=== PATIENT | female | born 1935 | race Caucasian/White ===

== ENCOUNTER 2019-09-02 15:25 | Inpatient (IN) | payer MEDICARE, BC ==
[2019-09-02] MEDS ORDERED: Fentanyl 100 MCG/2 ML VIAL ONE (16:37)
[2019-09-02 17:08] LABS: Bacteria/HPF 2+ HPF (None Seen); Bilirubin Negative (Negative); Blood, Urine 1+ (Negative); Clarity Turbid (Clear); Glucose, Urine (Dipstick) Normal (Negative); Leukocyte Negative Leu/uL (Negative); Nitrite Negative (Negative); Protein, Urine (Dipstick) 100 mg/dL (Neg-Trace); RBC/HPF 0-3 HPF (0-3); Squamous Epithelial 0-3 HPF (0-3); Urobilinogen 6 mg/dL (Less than 2); WBC/HPF 0-3 HPF (0-3)
--- NOTE | 2019-09-02 17:17 | CT ---
CT BRAIN WITHOUT CONTRAST: HISTORY: Loss of consciousness, altered mental status and laceration to the left face FINDINGS: No evidence of acute infarct, hemorrhage, midline shift or abnormal extra-axial fluid collections is seen. The ventricular size is appropriate and the basilar cisterns are patent. The bony calvarium is intact. There is a scalp contusion in the left frontoparietal region and soft tissue swelling the left perior bital region. A small air-fluid level is seen in the left maxillary sinus. Clinical correlation for facial bone fracture is recommended. IMPRESSION: No CT evidence of acute intracranial process.
--- NOTE | 2019-09-02 17:21 | CT ---
CT CERVICAL SPINE WITH CORONAL AND SAGITTAL REFORMATIONS AND NO IV CONTRAST: HISTORY: Patient found unconscious with laceration to the left face, neck pain FINDINGS: Multilevel degenerative changes are present. No acute fracture, subluxation or facet malalignment is identified. Anterior wedging of the superior endplate of C5 vertebral body has a chronic appearance. No prevertebral soft tissue swelling is apparent. There is scarring in the lung apices. IMPRESSION: No CT evidence for acute fracture or traumatic subluxation.
[2019-09-02 17:27] LABS: ALT (SGPT) 27 U/L (8-55); AST (SGOT) 45 U/L (5-34); Albumin 3.3 g/dL (3.4-4.8); Alkaline Phosphatase 59 U/L (40-110); Anion Gap 20 mmol/L (10-20); BUN (Urea Nitrogen) 48 mg/dL (9.8-20.1); Bilirubin, Total 0.7 mg/dL (0.2-1.2); CK (CPK) 1089 U/L (29-168); Calc. Creatinine Clearance 0 mL/min (70-130); Calcium 8.8 mg/dL (7.8-10.44); Carbon Dioxide 18 mmol/L (23-31); Chloride 106 mmol/L (98-107); Estimated GFR-MDRD 56; Globulin 3.2 g/dL (2.4-3.5); Glucose 156 mg/dL (83-110); Lipase 4 U/L (8-78); Potassium 3.8 mmol/L (3.5-5.1); Protein, Total 6.5 g/dL (6.0-8.3); Sodium 140 mmol/L (136-145)
[2019-09-02] MEDS ORDERED: cefTRIAXone\\ROCEPHIN 1 GM VIAL ONE (17:49)
--- NOTE | 2019-09-02 17:52 | RAD ---
THREE VIEWS LEFT SHOULDER: 09/02/19 COMPARISON: None. HISTORY: Shoulder pain. FINDINGS: Three views of the left shoulder shows no evidence of acute fracture or dislocation. No degenerative changes are seen. No soft tissue swelling is seen. IMPRESSION: No evidence of acute osseous abnormality. POS: EAA
[2019-09-02 17:54] LABS: CKMB 23.8 ng/mL (0-6.6)
--- NOTE | 2019-09-02 17:57 | RAD ---
PORTABLE CHEST ONE VIEW: 09/02/19 at 4:39 p.m. HISTORY: Fall. Chest pain. FINDINGS: Comparison made with exam of 12/13/13. Changes of median sternotomy again seen. The heart size is normal. The aorta is tortuous. The lungs a re well expanded without lobar consolidation, pneumothoraces, or pleural effusions. Bony structures a re grossly intact. IMPRESSION: No radiographic evidence of acute cardiopulmonary process. POS: H
[2019-09-02 18:01] LABS: #Lymphocytes 0.4 thou/uL (1.20-3.40); #Monocytes 1.7 thou/uL (0.11-0.59); #Neutrophils 10.6 thou/uL (1.40-6.50); %Basophils 0.1 % (0.0-1.0); %Eosinophils 0.1 % (0.0-10.0); %Lymphocytes 3.3 % (21.0-51.0); %Monocytes 13.3 % (0.0-10.0); %Neutrophils 83.3 % (42.0-75.0); Hemoglobin 15.2 g/dL (12.0-16.0); Mean Corpuscular HGB CONC 32.2 g/dL (32.0-36.0); Mean Corpuscular Hemoglobin 29.5 pg (27.0-31.0); Mean Corpuscular Volume 91.7 fL (78.0-98.0); Mean Platelet Volume 7.3 fL (7.4-10.4); Platelet Count 319 thou/uL (130-400); RBC Distribution Width 12.8 % (11.5-14.5); Red Blood Cell (RBC) Count 5.14 mill/uL (4.20-5.40); White Blood Cell (WBC) Count 12.8 thou/uL (4.8-10.8)
[2019-09-02] MEDS ORDERED: Sodium Chloride 0.9% 1,000 ML IV SCH (19:55)
[2019-09-02] MEDS ORDERED: Dextrose 50% Abboject 50 ML SYRINGE SLOW IVP PRN (20:04)
[2019-09-02] MEDS ORDERED: Dextrose 5% in Water 1,000 ML IV PRN (20:04)
[2019-09-02 20:12] VITALS: BMI 19.2
[2019-09-02] MEDS ORDERED: HumaLOG 300 UNITS/3 ML VIAL SC PRN (20:18)
[2019-09-02] MEDS: Sodium Chloride 0.9% 1,000 ML IV SCH (20:49)
[2019-09-02] MEDS ORDERED: Famotidine 20 MG TAB PO SCH (21:00)
--- NOTE | 2019-09-02 21:15 | RAD ---
AP PELVIS: 09/02/19 HISTORY: Fall, hip pain. FINDINGS/IMPRESSION: There are degenerative changes in the hip joints. No acute fracture or dislocation identified. POS: MICHAEL
--- NOTE | 2019-09-02 21:40 | CT ---
CT Facial Bones WO Con HISTORY: Left-sided facial laceration concerning for fracture COMPARISON: None. FINDINGS: No facial bone fracture is seen. No temporomandibular dislocation is identified. There is a tiny amou nt of fluid in the left maxillary sinus. Mucosal disease is noted in the posterior ethmoid air cells. There is mild left periorbital soft tissue swelling.
--- NOTE | 2019-09-02 22:33 | ULT ---
EXAM: Bilateral lower extremity venous Doppler US HISTORY: bilateral lower extremity edema and pain FINDINGS: Grayscale, color-flow, Doppler evaluation, spectral analysis of the bilateral lower extremities venou s structures is performed with 2-D imaging. The bilateral common femoral, superficial femoral, popliteal, posterior tibial, proximal greater saphenous and profunda femoral veins are imaged. There is normal luminal compressibility, flow, and augmentation in the visualized deep venous structu res of the bilateral lower extremities. IMPRESSION: No evidence of a deep vein thrombosis in either lower extremity.
[2019-09-02] MEDS: Acetaminophen 325 MG TAB PO PRN (22:38)
[2019-09-02 23:03] LABS: Troponin I 0.056 ng/mL (< 0.028)
--- NOTE | 2019-09-03 01:07 | HP ---
PRIMARY CARE PHYSICIAN: Dr. Usman Botello. CHIEF COMPLAINT: "Found down at home." HISTORY OF PRESENT ILLNESS: The patient is a pleasant 83-year-old female with past medical history significant for diabetes, type 2, which is diet controlled. She presents to the ER today after her sister went to check on her after she had not heard from her for couple of days and found her lying on the floor covered in feces and urine. The patient states she is unaware of how long she was down on the floor, but the last time anyone saw her was the [employer] delivery driver assistant, who was there on Saturday delivering her food, which was three days ago. She states that it was a fall caused by her dogs who were rough with her walker and it caused her to fall down. She denies any pain at this time. She was wearing a Life Alert bracelet, but she fell on top of it and was unable to press it to call for help. In the ER today, they brea lab work and performed a brain CT and cervical spine CT, chest x-ray, shoulder x-ray, and EKG. Multiple wounds had dog hair in them and while nursing was cleaning the patient they discovered multiple maggots in her vaginal and rectal area which they removed. APS was notified at this time. PAST MEDICAL HISTORY: Significant for diabetes, type 2. PAST SURGICAL HISTORY: CABG in 2015. ALLERGIES: NO KNOWN DRUG ALLERGIES. MEDICATIONS: Unable to obtain at this time- patient does not remember. SOCIAL HISTORY: The patient lives alone in her house. She uses a walker to get around. States she no longer drives, but her son will arrange a otr driver for her if she has to go to her doctor's appointments. She denies any alcohol, cigarette, or drug use. FAMILY HISTORY: None that patient can remember. REVIEW OF SYSTEMS: All other review of systems are negative unless noted in the HPI. PHYSICAL EXAMINATION: VITAL SIGNS: Blood pressure 108/70, pulse 90, respiratory rate 16, pain 0, O2 saturation 96% on room air, and temperature 97.6 orally. GENERAL: The patient is cachectic appearing. No acute distress. HEENT: Hematoma to the right forehead. Normocephalic. Pressure necrosis to the left cheek secondary to lying on her Life Alert for three days. Eyes; PERRLA. Extraocular muscles are intact. Edema to the left eyelid, however, it does not obstruct her vision. ENT; dry mucosa. NECK: Trachea midline. No JVD. No lymphadenopathy. RESPIRATORY: Clear to auscultation bilaterally. No wheezing, no rales, no rhonchi. CARDIAC/HEART: Regular rate and rhythm. No gallops, no rubs, no murmurs. GI/ABDOMEN: Nontender. Normal bowel sounds. No masses, no guarding, no rigidity. EXTREMITIES: Normal range of motion. Skin tear noted to the left elbow. NEURO: The patient is alert, oriented to person, place, and time. Speech is normal. No focal deficits. SKIN: Multiple skin tears to her abdomen area and arms. She does have a hematoma to her forehead and the pressure ulcer to her left cheek. PSYCH: Flat affect noted. LABORATORY DATA: White blood cells 12.8, hemoglobin 15.2, and hematocrit 47.2. Sodium 140, potassium 3.8, BUN 48, creatinine 0.96, GFR 56, glucose 156, and calcium 8.8. CK 1089, CK-MB 23.8, troponin 0.076, and albumin 3.3. Urine; positive for protein and ketones, 1+ blood, and 2+ bacteria. EKG; sinus rhythm, rate 93. IMAGING DATA: CT of her brain, no evidence for acute intracranial process. Cervical spine CT showed no CT evidence for acute fracture or traumatic subluxation. IMPRESSION AND PLAN: 1. Rhabdomyolysis. We will begin to gently hydrate with fluids overnight and recheck lab levels in the morning. 2. Fall. The patient was found down after three days of lying on the floor. Case Management consult has been placed for possible placement versus rehab versus home health. APS case initiated in the ER. 3. Facial pressure ulcer. Wound Care team has been consulted. 4. Abrasions. 5. Closed head injury. CT scan negative for anything acute. Continue to monitor mentation. 6. Elevated troponin. We will continue to trend troponins throughout the evening. Feel this may be due to her lying on the ground for three days, 7. General weakness. PT and OT ordered to assess and work with patient. Dietitian consult placed. 8. Muscle wasting. 9. Urinary tract infection. Continue IV antibiotics. Urine culture sent. 10. Gastrointestinal prophylaxis ordered. Day team to decide regarding VTE prophylaxis once imaging results. No SCDs due to lower extremity pain and swelling- awaiting venous ultrasound. 11. The patient wishes to be a DNR. 12. The patient's surrogate decision maker will be her son, Evan, phone #[phone]. Job ID: [id number] MTDD
[2019-09-03] MEDS: Sodium Chloride 0.9% 1,000 ML IV SCH ×3 (04:30→21:10)
[2019-09-03 05:09] LABS: Chloride 110 mmol/L (98-107); Potassium 4.7 mmol/L (3.5-5.1); Sodium 138 mmol/L (136-145)
[2019-09-03 05:11] LABS: Calcium 8.1 mg/dL (7.8-10.44); Glucose 126 mg/dL (83-110)
[2019-09-03 05:13] LABS: Carbon Dioxide 15 mmol/L (23-31)
[2019-09-03 05:15] LABS: Calc. Creatinine Clearance 36 mL/min (70-130); Estimated GFR-MDRD 52
[2019-09-03 05:16] LABS: BUN (Urea Nitrogen) 50 mg/dL (9.8-20.1)
[2019-09-03 05:17] LABS: CK (CPK) 1877 U/L (29-168)
[2019-09-03 05:39] LABS: Anion Gap 18 mmol/L (10-20)
[2019-09-03 07:51] LABS: Mean Corpuscular HGB CONC 32.9 g/dL (32.0-36.0); Mean Corpuscular Hemoglobin 29.7 pg (27.0-31.0); Mean Corpuscular Volume 90.1 fL (78.0-98.0); Platelet Count 279 thou/uL (130-400); Red Blood Cell (RBC) Count 4.73 mill/uL (4.20-5.40); White Blood Cell (WBC) Count 9.8 thou/uL (4.8-10.8)
[2019-09-03 09:50] LABS: Band 4 % (5-11); Lymphocytes 10 % (21-51); MDiff Complete? YES; Monocytes 14 % (0-10); Neutrophil 72 % (42-75); Platelet Morphology Comment Appears Adequate; Polychromasia SLIGHT = 2-3 cells (100X) (0-2/hpf); Vacuoles SLIGHT
[2019-09-03] MEDS: Acetaminophen 325 MG TAB PO PRN (12:22)
--- NOTE | 2019-09-03 13:14 | PRG ---
DATE OF SERVICE: 09/03/2019 SUBJECTIVE: The patient is lying in her bed. She looks very weak and not able to participate in any significant PT because of her generalized weakness and status post fall and multiple abrasions of her skin from the fall, but she is able to communicate with me. OBJECTIVE: VITAL SIGNS: Blood pressure is 115/54, pulse is 84, temperature is 97.5, respiratory rate is 18, and O2 saturation is 95% on room air. HEENT: Her pupils are responding to light properly. Sclerae are nonicteric. Oral mucosa is dry. NECK: Supple. SKIN: She has multiple excoriations on the left part of her body, hips, knees included, also left upper chest abrasion. PSYCH: She follows my commands. She understands me. LUNGS: Clear. HEART: S1 and S2, somewhat irregular. No S3. No S4. ABDOMEN: Soft, mildly tender to deeper palpation in the left side of the abdomen. No guarding. No masses. EXTREMITIES: 1+ peripheral edema, similar bilateral on both lower extremities around both ankles. NEUROLOGIC: She follows my commands. She tries to move her extremities, but she is very weak. She is not able to do that. LABORATORY DATA: Labs showed a normal CBC. Chemistry showed sodium of 130, potassium 4.7, chloride 110, CO2 of 15, BUN 50, creatinine 1.01, and glucose 126. The rest of chemistry is within normal limits. Creatine kinase 1877, troponin I 0.06 and 0.056. Microbiology, no report so far. IMPRESSION: 1. Rhabdomyolysis from the fall, on IV fluids. Her creatine kinase is higher today than it was yesterday. We will continue the same regimen with 125 mL/h of normal saline. 2. Status post fall with closed head injury and negative CT scan for any acute problems. Her mentation seems to be doing okay. 3. Generalized weakness. 4. Possible urinary tract infection, on IV antibiotic. Culture of urine still pending. 5. Muscle wasting. PLAN: To continue her IV fluids. Continue PT, OT. Continue wound care. She will need rehabilitation transfer. She will continue Tylenol p.r.n. as needed for possible pain. We will continue her ceftriaxone for possible UTI until we have urine culture. Her diabetes will be managed with sliding scale and we will hold her oral antidiabetic medications. I am holding her carvedilol and lisinopril since her blood pressure is running within normal range. Job ID: [id number]
[2019-09-03] MEDS: cefTRIAXone\\ROCEPHIN 1 GM in Sodium Chloride 0.9% 100 ML IVPB SCH (17:25)
[2019-09-03] MEDS: Famotidine 20 MG TAB PO SCH (21:07)
[2019-09-03] MEDS ORDERED: Bacitracin 1 PK TOP SCH (22:30)
[2019-09-04] MEDS: Acetaminophen 325 MG TAB PO PRN ×2 (02:22→15:23)
[2019-09-04 04:26] LABS: Anion Gap 7 mmol/L (10-20); BUN (Urea Nitrogen) 33 mg/dL (9.8-20.1); CK (CPK) 336 U/L (29-168); Calc. Creatinine Clearance 51 mL/min (70-130); Calcium 7.6 mg/dL (7.8-10.44); Carbon Dioxide 23 mmol/L (23-31); Chloride 111 mmol/L (98-107); Estimated GFR-MDRD 79; Glucose 136 mg/dL (83-110); Potassium 3.6 mmol/L (3.5-5.1); Sodium 137 mmol/L (136-145)
[2019-09-04] MEDS: Sodium Chloride 0.9% 1,000 ML IV SCH ×3 (05:39→20:44)
--- NOTE | 2019-09-04 12:19 | PQF ---
Date: 09-04-19 ATTN: DR. BRANDON TRUJILLO Please exercise your independent, professional judgment in responding to the clarification form. Clinical indicators are provided on the bottom of this form for your review Please check appropriate box(s): [ ] Protein Calorie Malnutrition: [ ] Mild [ ] Moderate [ ] Severe [ ] Other Malnutrition (please specify) __ [ ] Other diagnosis [ x ] Unable to determine In addition, please specify: Present on Admission (POA): [ ] Yes [ ] No [ x ] Unable to determine CLINICAL INDICATORS - SIGNS / SYMPTOMS / LABS / RESULTS AND LOCATION IN MR: BMI: 19.4 H&P 09-02-19: PATIENT IS CACHECTIC APPEARING, MUSCLE WASTING, Patient has visible signs of muscle wasting but unable to obtain weight history. TANK ERECTOR CONSULT 09-03-19: MST Score: 2 (14-23 lb weight loss), WCT pending for unstageable pressure ulcer to L cheek; multiple abrasions and skin tears also noted s/p fall at home; [id number] muscle wasting to temporalis and trapezius, moderate fat loss to ribs RISK FACTORS / RESULTS AND LOCATION IN MR: H&P: 09-02-19: HX DM 2, FOUND HER LYING ON THE FLOOR COVERED INFECTED AND URINE, CLOSED HEAD INJURY, GENERALIZED WEAKNESS, MUSCLE WASTING, UTI TREATMENT / RESULTS AND LOCATION IN MR: TANK ERECTOR CONSULT 09-03-19: 1. Recommend a Consistent Carb (1800 juan jose)/Heart Healthy diet 2. Recommend Glucerna Shakes BID in between meals Moderate Malnutrition (in acute illness) Energy Intake: <75% of estimated energy requirement for > 7 days Weight Loss: 1-2%/1 week; 5%/ 1 month; 7.5%/3 months Other: mild body fat loss; mild muscle mass loss; mild fluid accumulation; Severe Malnutrition (in acute illness) Energy Intake: < 50% of estimated energy requirement for > 5 days Weight Loss: >1-2%/1 week; >5%/1 month; >7.5%/3 months Other: moderate body fat loss; moderate muscle mass loss; moderate- severe fluid accumulation; measurably reduced enterprise architect manager strength Moderate Malnutrition (in chronic illness) Energy Intake: <75% of estimated energy requirement for >1 month Weight Loss: 5%/1 month; 7.5%/3 months; 10%/6 months; 20%/1 year Other: mild body fat loss; mild muscle mass loss; mild fluid accumulation Severe Malnutrition (in chronic illness) Energy Intake: <75% of estimated energy requirement for >1 month Weight Loss: >5%/1 month; >7.5%/3 months; >10%/6 months; >20%/1 year Other: severe body fat loss; severe muscle mass loss; severe fluid accumulation ; measurably reduced enterprise architect manager strength (This form is maintained as a part of the permanent medical record) 2015 [email or web address] All Rights Reserved [email or web address]
[2019-09-04] MEDS: Bacitracin 1 PK TOP SCH ×2 (14:47→20:45)
[2019-09-04] MEDS: cefTRIAXone\\ROCEPHIN 1 GM in Sodium Chloride 0.9% 100 ML IVPB SCH (18:00)
--- NOTE | 2019-09-04 20:04 | PDOC.HOSPP ---
- Subjective Encounter Date: 09/04/19 Encounter Time: 09:00 Subjective: 83yo F w/ Parkinson's disease presents after a mechanical fall. This morning, feeling better. Complains of inability to move left arm that is new, however, likey acute on chronic due to fall. Not able to care for self but refuses long goods drier placement, agrees to rehab. - Objective Vital Signs & Weight: Vital Signs (12 hours) Temp Pulse Resp BP Pulse Ox 09/04/19 16:55 98.1 F 63 16 108/52 L 99 09/04/19 11:55 98.6 F 72 13 118/59 L 98 Weight Admit Weight 119 lb 2 oz Weight 120 lb I&O: 09/03/19 09/04/19 09/05/19 06:59 06:59 06:59 Intake Total 1600 3895 Output Total 650 750 300 Balance 950 3145 -300 Result Diagrams: 09/03/19 07:32 09/04/19 03:38 Additional Labs: Accuchecks 09/04/19 09/04/19 09/04/19 17:02 10:55 06:28 POC Glucose 127 H 136 H 107 09/03/19 21:14 POC Glucose 99 Hospitalist ROS - Review of Systems Constitutional: denies: fever, chills, sweats, weakness, malaise, other Respiratory: denies: cough, dry, shortness of breath, hemoptysis, SOB with excertion, pleuritic pain, sputum, wheezing, other Cardiovascular: denies: chest pain, palpitations, orthopnea, paroxysmal noc. dyspnea, edema, light headedness, other Gastrointestinal: denies: nausea, vomiting, abdominal pain, diarrhea, constipation, melena, hematochezia, other Musculoskeletal: reports: arm pain Neurological: reports: weakness, incoordination. denies: change in speech - Medication Medications: Active Medications Generic Name Dose Route Start Last Admin Trade Name Freq PRN Reason Stop Dose Admin Acetaminophen 650 mg 09/02/19 20:18 09/04/19 15:23 Tylenol PO 650 mg Q4H PRN Administration Headache/Fever/Mild Pain (1-3) Bacitracin 0 pk 09/04/19 09:00 09/04/19 14:47 Bacitracin TOP 1 pk Q12HR MIGUEL Administration Famotidine 20 mg 09/03/19 21:00 09/03/19 21:07 Pepcid PO 20 mg 2100 MIGUEL Administration Sodium Chloride 1,000 mls @ 125 mls/hr 09/02/19 20:30 09/04/19 13:23 Normal Saline 0.9% IV 1,000 mls .Q8H MIGUEL Administration Ceftriaxone Sodium 1 gm/ 100 mls @ 200 mls/hr 09/03/19 18:00 09/04/19 18:00 Sodium Chloride IVPB 100 mls Q24HR MIGUEL Administration Insulin Human Lispro 0 units 09/02/19 20:18 09/03/19 12:24 Humalog SC 2 unit .MILD SLIDING SCALE PRN Administration Mild Correctional Scale - Exam General Appearance: NAD, awake alert Heart: RRR, no murmur, no gallops, no rubs, normal peripheral pulses Respiratory: CTAB, no wheezes, no rales, no ronchi, normal chest expansion, no tachypnea, normal percussion Skin - other findings: multiple skin lacerations and pressure ulcers Musculoskeletal: generalized weakness Hosp A/P - Plan #parkinson's disease #mechanical fall -fell after dogs pushed her walker, unable to get up, found in feces -unable to care for self; refuses long goods drier placement, rehab started -Per PT, improved strength -Trop not trended but no complaints c/w cardiac pain and CKMB/CK < 0.05 Full code pending rehab placement; CM onboard
[2019-09-04] MEDS: Famotidine 20 MG TAB PO SCH (20:44)
[2019-09-04] MEDS: Aspirin 81 mg Enteric Coated Tablet PO SCH (20:45)
[2019-09-04] MEDS ORDERED: Simethicone Chewable 80 MG TAB PO PRN (20:51)
[2019-09-04] MEDS ORDERED: Mag-Al 1200 mg/1200 mg/30 ML UDCUP PO PRN (20:51)
[2019-09-05] MEDS: Acetaminophen 325 MG TAB PO PRN ×2 (00:36→09:46)
[2019-09-05] MEDS: Vancomycin 1 GM in Premix Bag 1 BAG IVPB SCH (00:37)
[2019-09-05 05:21] LABS: Anion Gap 8 mmol/L (10-20); BUN (Urea Nitrogen) 21 mg/dL (9.8-20.1); Calc. Creatinine Clearance 58 mL/min (70-130); Calcium 7.5 mg/dL (7.8-10.44); Carbon Dioxide 23 mmol/L (23-31); Chloride 110 mmol/L (98-107); Estimated GFR-MDRD 87; Glucose 119 mg/dL (83-110); Magnesium 1.9 mg/dL (1.6-2.6); Potassium 3.6 mmol/L (3.5-5.1); Sodium 137 mmol/L (136-145)
[2019-09-05 05:28] LABS: Phosphorus 1.6 mg/dL (2.3-4.7)
[2019-09-05] MEDS ORDERED: Potassium Phosphate 30 MMOL in Sodium Chloride 0.9% 500 ML IVPB SCH (06:00)
[2019-09-05] MEDS: Bacitracin 1 PK TOP SCH ×2 (09:18→20:52)
[2019-09-05] MEDS ORDERED: Morphine 2 MG/ML SYRINGE SLOW IVP SCH (11:00)
--- NOTE | 2019-09-05 14:31 | MRI ---
Exam: Brain MRI without contrast HISTORY: Left sided weakness. Fall. Evaluate for CVA. COMPARISON: None FINDINGS: Calvarial marrow signal intensity: Appropriate T1 signal Gradient echo sequence: No hemorrhage Brain parenchyma: No mass, mass effect or midline shift. Brain volume, age-appropriate. Cortical goyal-white matter differentiation: Preserved Restricted diffusion: Central arterial flow voids are maintained. Absent restricted diffusion White matter signal intensities:Scattered T2, FLAIR white matter hyperintensities due to chronic smal l vessel ischemic changes Sinuses: Partial opacification of the mastoid air cells. Mild mucosal thickening of the ethmoid air c ells. IMPRESSION: 1. Absent restricted diffusion. No acute infarct.
[2019-09-05] MEDS: Acetaminophen/Codeine 30-300mg Tablet PO PRN ×2 (14:43→20:52)
--- NOTE | 2019-09-05 15:37 | PDOC.HOSPP ---
- Subjective Encounter Date: 09/05/19 Encounter Time: 09:30 Subjective: Pt seen for followup re: LUE numbness. c/o LUE numbness. No cough or fevers. - Objective Vital Signs & Weight: Vital Signs (12 hours) Temp Pulse Resp BP Pulse Ox 09/05/19 12:00 97.5 F L 63 14 101/51 L 96 09/05/19 08:00 98 F 66 18 115/56 L 97 09/05/19 07:45 97 09/05/19 03:54 98.0 F 70 20 110/56 L 95 Weight Admit Weight 119 lb 2 oz Weight 123 lb I&O: 09/04/19 09/05/19 09/06/19 06:59 06:59 06:59 Intake Total 3895 1200 Output Total 750 900 Balance 3145 300 Result Diagrams: 09/03/19 07:32 09/05/19 04:31 Additional Labs: Accuchecks 09/05/19 09/05/19 09/04/19 11:08 06:04 20:03 POC Glucose 133 H 107 121 H 09/04/19 17:02 POC Glucose 127 H Labs and MARs reviewed by me EKG Reviewed by me: Yes (Tele: NSR) Hospitalist ROS - Review of Systems Cardiovascular: denies: chest pain, palpitations, orthopnea, paroxysmal noc. dyspnea, edema, light headedness Gastrointestinal: denies: nausea, vomiting, abdominal pain, diarrhea, constipation, melena, hematochezia Neurological: reports: numbness - Medication Medications: Active Medications Generic Name Dose Route Start Last Admin Trade Name Freq PRN Reason Stop Dose Admin Acetaminophen 650 mg 09/02/19 20:18 09/05/19 09:46 Tylenol PO 650 mg Q4H PRN Administration Headache/Fever/Mild Pain (1-3) Acetaminophen/Codeine Phosphate 1 tab 09/05/19 10:51 09/05/19 14:43 Tylenol #3 PO 1 tab Q6H PRN Administration Moderate Pain (4-6) Aspirin 81 mg 09/04/19 21:00 09/04/19 20:45 Ecotrin PO 81 mg HS MIUGEL Administration Bacitracin 0 pk 09/04/19 09:00 09/05/19 09:18 Bacitracin TOP 1 pk Q12HR MIGUEL Administration Famotidine 20 mg 09/03/19 21:00 09/04/19 20:44 Pepcid PO 20 mg 2100 MIGUEL Administration Sodium Chloride 1,000 mls @ 75 mls/hr 09/04/19 20:10 09/04/19 20:44 Normal Saline 0.9% IV 1,000 mls .[id number] MIGUEL Administration Vancomycin HCl 1 gm/ Device 200 mls @ 200 mls/hr 09/05/19 01:00 09/05/19 00: 37 IVPB 200 mls 0100 MIGUEL Administration Insulin Human Lispro 0 units 09/02/19 20:18 09/03/19 12:24 Humalog SC 2 unit .MILD SLIDING SCALE PRN Administration Mild Correctional Scale Simethicone 80 mg 09/04/19 20:51 09/04/19 21:15 Mylicon Chewable PO 80 mg PCHS PRN Administration Gas Pain - Exam General Appearance: awake alert Eye: anicteric sclera ENT: normocephalic atraumatic, no oropharyngeal lesions, moist mucosa Neck: supple, symmetric, no thyromegaly Heart: RRR, no rubs Respiratory: CTAB Gastrointestinal: soft, non-tender Extremities - other findings: LUE edema Neurological: normal sensation to touch Psychiatric: normal affect, normal behavior Hosp A/P - Plan - Assessment/Plan: #numbness LUE -Check MRI brain due to numbness LUE #parkinson's disease #mechanical fall -s/p fall, unkempt -Awaiting Inpt Rehab
[2019-09-05] MEDS ORDERED: HumaLOG 300 UNITS/3 ML VIAL SC PRN (20:37)
[2019-09-05] MEDS: Sodium Chloride 0.9% 1,000 ML IV SCH (20:51)
[2019-09-05] MEDS: Aspirin 81 mg Enteric Coated Tablet PO SCH (20:52)
[2019-09-05] MEDS: Famotidine 20 MG TAB PO SCH (20:53)
[2019-09-06] MEDS: Vancomycin 1 GM in Premix Bag 1 BAG IVPB SCH (00:53)
[2019-09-06] MEDS: Bacitracin 1 PK TOP SCH (09:34)
[2019-09-06] MEDS: Sodium Chloride 0.9% 1,000 ML IV SCH (09:36)
[2019-09-06] MEDS: Acetaminophen/Codeine 30-300mg Tablet PO PRN (11:23)
--- NOTE | 2019-09-06 13:57 | PDOC.HOSPP ---
- Subjective Encounter Date: 09/06/19 Encounter Time: 08:30 Subjective: Pt seen for followup re: rhabdomyolysis. Feels better today. - Objective Vital Signs & Weight: Vital Signs (12 hours) Temp Pulse Resp BP Pulse Ox 09/06/19 11:14 98.2 F 70 18 120/59 L 93 L 09/06/19 07:53 95 09/06/19 07:24 97.8 F 66 17 115/57 L 95 09/06/19 04:53 98.1 F 66 16 109/57 L 95 Weight Admit Weight 119 lb 2 oz Weight 127 lb 8 oz I&O: 09/05/19 09/06/19 09/07/19 06:59 06:59 06:59 Intake Total 1200 1140 Output Total 900 550 Balance 300 590 Result Diagrams: 09/03/19 07:32 09/05/19 04:31 Additional Labs: Accuchecks 09/06/19 09/06/19 09/05/19 10:51 05:55 23:45 POC Glucose 166 H 99 135 H 09/05/19 09/05/19 20:23 16:37 POC Glucose 210 H 181 H Labs and MARs reviewed by me EKG Reviewed by me: Yes (Tele: NSR) Hospitalist ROS - Review of Systems Cardiovascular: denies: chest pain, palpitations, orthopnea, paroxysmal noc. dyspnea, edema, light headedness Gastrointestinal: denies: nausea, vomiting, abdominal pain, diarrhea, constipation, melena, hematochezia - Medication Medications: Active Medications Generic Name Dose Route Start Last Admin Trade Name Freq PRN Reason Stop Dose Admin Acetaminophen 650 mg 09/02/19 20:18 09/05/19 09:46 Tylenol PO 650 mg Q4H PRN Administration Headache/Fever/Mild Pain (1-3) Acetaminophen/Codeine Phosphate 1 tab 09/05/19 10:51 09/06/19 11:23 Tylenol #3 PO 1 tab Q6H PRN Administration Moderate Pain (4-6) Aspirin 81 mg 09/04/19 21:00 09/05/19 20:52 Ecotrin PO 81 mg HS MIGUEL Administration Bacitracin 0 pk 09/04/19 09:00 09/06/19 09:34 Bacitracin TOP 1 pk Q12HR MIGUEL Administration Famotidine 20 mg 09/03/19 21:00 09/05/19 20:53 Pepcid PO 20 mg 2100 MIGUEL Administration Sodium Chloride 1,000 mls @ 75 mls/hr 09/04/19 20:10 09/06/19 09:36 Normal Saline 0.9% IV 1,000 mls .[id number] MIGUEL Administration Vancomycin HCl 1 gm/ Device 200 mls @ 200 mls/hr 09/05/19 01:00 09/06/19 00: 53 IVPB 200 mls 0100 MIGUEL Administration Insulin Human Lispro 0 units 09/02/19 20:18 09/03/19 12:24 Humalog SC 2 unit .MILD SLIDING SCALE PRN Administration Mild Correctional Scale Simethicone 80 mg 09/04/19 20:51 09/04/19 21:15 Mylicon Chewable PO 80 mg PCHS PRN Administration Gas Pain - Exam General Appearance: awake alert Eye: PERRL, anicteric sclera ENT: normocephalic atraumatic, no oropharyngeal lesions Neck: supple, no thyromegaly Heart: RRR Respiratory: CTAB Gastrointestinal: soft, non-tender Skin - other findings: bruise Psychiatric: normal affect, normal behavior Hosp A/P - Plan - Assessment/Plan: #rhabdomyolysis -CK improved #mechanical fall -s/p fall, unkempt -Awaiting Inpt Rehab #numbness LUE -MRI brain nil acute #parkinson's disease
[2019-09-06 15:59] VITALS: BP 122/58; TEMP 97.8
[2019-09-06] MEDS ORDERED: Nitrofurantoin Monohyd/M-Cryst 100 MG CAP PO SCH (21:00)
--- NOTE | 2019-09-07 04:35 | DIS ---
DATE OF ADMISSION: 09/02/2019 DATE OF DISCHARGE: 09/06/2019 PRIMARY CARE PROVIDER: Dr. Usman Botello. DISCHARGE DIAGNOSES: 1. Rhabdomyolysis. 2. Moderate protein calorie malnutrition. 3. Status post fall. 4. Urinary tract infection. 5. Hypophosphatemia. CONDITION OF PATIENT ON THE DAY OF DISCHARGE: Stable. I assessed Ms. Rainey on the day of discharge. Please refer to my daily hospitalist progress note for further details regarding this [id number] encounter. HOSPITAL COURSE: Ms. Rainey is a pleasant 83-year-old lady, who was admitted to [facility] on September 02, 2019 for rhabdomyolysis following a fall. Please refer to Ms. Hess's history and physical note dated September 02, 2019 for further details. She improved with intravenous fluids. She also received antibiotics for urinary tract infection. Urine cultures grew alpha Streptococcus, not Streptococcus pneumoniae and Enterococcus faecalis, which was pansensitive. She is being transitioned to Macrobid at the time of discharge. She was evaluated by [facility]. She has been accepted for inpatient rehab at [facility]. DIET: Heart healthy and diabetic. ACTIVITY: As tolerated. POST ACUTE CARE FOLLOWUP: With primary care provider in 1 week. DISCHARGE MEDICATIONS: 1. Aspirin 81 mg at bedtime. 2. Zetia 10 mg daily. 3. Lasix 20 mg daily. 4. Spironolactone 25 mg daily. 5. Bacitracin ointment. 6. Metformin 500 mg 2 times a day. 7. Macrobid 100 mg 2 times a day for 3 more days. Many thanks for allowing me to participate in your patient's care. Please feel free to contact me with any questions or concerns. DISCHARGE DESTINATION: [facility]. TOTAL AMOUNT OF TIME SPENT COORDINATING THIS DISCHARGE: 25 minutes. Job ID: [id number]
--- NOTE | 2019-09-09 03:11 | PQF ---
BIJU ENNIS DAVID [id number] [facility]-263 [id number] CLINICAL DOCUMENTATION CLARIFICATION FORM: POST DISCHARGE Addendum to original discharge summary date: ____ Late entry note date: __ DATE:09/09/2019 ATTN: Be Mccormick Please exercise your independent, professional judgment in responding to the clarification form. Clinical indicators are provided on the bottom of this form for your review Please check appropriate box(es): [ x ] Sepsis due to UTI [ ] Localized infection without sepsis [ ] Other diagnosis [ ] Unable to determine In addition, please specify: Present on Admission (POA): [ x ] Yes [ ] No [ ] Unable to determine For continuity of documentation, please document condition throughout progress notes and discharge summary. Thank You. CLINICAL INDICATORS - SIGNS / SYMPTOMS / LABS Laboratory 09/01 WBC 12.8, Plt count 319, Necrophils 83.3, Band 4 Vital signs 09/01 BP 123/58, Pulse 105, resp 18, temp 97.5 Urine culture 09/01 Positive with Enterococcus Faecalis, Alpha-Strep ED notes p2 09/01 SIRS Scoring: Patient did meetS at least 1 criteria H&P p3 09/01 [place], [employer] Urinary tract infection RISK FACTORS H&P p1 09/01 83 year-old Female H&P p1 09/01 DM H&P p1 09/01 HTN H&P p3 09/01 - Urinary tract infection DS p1 09/05 Moderate Malnutrition TREATMENTS: MAY 28 IV Ceftriaxone 1 gm MAY 28 IVF NS 1L MAY 28 IV Vancomycin 2 gm Urine culture ordered 09/01 (This form is maintained as a part of the permanent medical record) 2014 [employer], [employer]. All Rights Reserved [email or web address]
== END 2019-09-06 17:40 | DRG 564 ==
LOC: ERS 15:25 → 2NO 18:11
PROVIDERS: ADMIT Internal Medicine; ATTEND Internal Medicine
DX: T79.6XXA Traumatic ischemia of muscle, initial encounter (principal); A40.0 Sepsis due to streptococcus, group A; N39.0 Urinary tract infection, site not specified; E44.0 Moderate protein-calorie malnutrition; E83.39 Other disorders of phosphorus metabolism; B95.0 Streptococcus, group A, as the cause of diseases classified elsewhere; E11.9 Type 2 diabetes mellitus without complications; I10 Essential (primary) hypertension; S09.90XA Unspecified injury of head, initial encounter; W18.31XA Fall on same level due to stepping on an object, initial encounter; L89.819 Pressure ulcer of head, unspecified stage; R79.89 Other specified abnormal findings of blood chemistry; G20 Parkinson's disease; R20.0 Anesthesia of skin; B95.2 Enterococcus as the cause of diseases classified elsewhere; S70.212A Abrasion, left hip, initial encounter; S70.211A Abrasion, right hip, initial encounter; S20.312A Abrasion of left front wall of thorax, initial encounter; S50.312A Abrasion of left elbow, initial encounter; S50.311A Abrasion of right elbow, initial encounter; S01.81XA Laceration without foreign body of other part of head, initial encounter; S81.011A Laceration without foreign body, right knee, initial encounter; Z68.20 Body mass index [BMI] 20.0-20.9, adult; Z95.1 Presence of aortocoronary bypass graft; Y92.009 Unspecified place in unspecified non-institutional (private) residence as the place of occurrence of the external cause; Z79.899 Other long term (current) drug therapy; Z79.82 Long term (current) use of aspirin; Z88.2 Allergy status to sulfonamides
CPT/HCPCS: 36415; 36416; 51701; 70450; 70486; 70551; 71045; 72125; 72170; 80048; 80053; 81003; 81015; 82550; 82553; 83690; 83735; 84100; 84484; 85025; 87077; 87086; 87186; 93005; 93970; 96365; 96375; J0696; J2270; J3010; J3370; J3490; J7030

== ENCOUNTER 2020-02-29 06:41 | Outpatient (CLI) | payer MEDICARE, BC ==
[2020-02-29 15:14] LABS: Hemoglobin 12.2 g/dL (12.0-16.0); Mean Corpuscular Hemoglobin 29.4 PG (27.0-33.0); Mean Corpuscular Volume 94.9 fl (80.0-100.0); Mean Platelet Volume 9.6 fl (7.4-10.4); Platelet Count 358 10x3/uL (130-400); RBC Distribution Width 15.2 % (11.5-14.5); Red Blood Cell (RBC) Count 4.15 10x6/uL (3.90-5.20); White Blood Cell (WBC) Count 7.5 10x3/uL (4.5-11.0)
[2020-02-29 15:40] LABS: Anion Gap 14 mmol/L (10-20); BUN (Urea Nitrogen) 31 mg/dL (9.8-20.1); Calc. Creatinine Clearance 0 mL/min (70-130); Carbon Dioxide 27 mmol/L (23-31); Chloride 104 mmol/L (98-107); Glucose 78 mg/dL (83-110); Potassium 4.7 mmol/L (3.5-5.1); Sodium 140 mmol/L (136-145)
[2020-03-01 02:10] LABS: SARS-CoV-2 MS2 Positive; SARS-CoV-2 N Gene Negative; SARS-CoV-2 S Gene Negative; SARS-CoV-2 by NAA Not Detected (NotDetected); SARS-CoV-2 orf1ab Negative
== END 2020-02-29 06:42 | disposition home or self-care (01) ==
LOC: LABBT 06:41
PROVIDERS: ATTEND Thoracic Surgery (Cardiothoracic Vascular Surgery)
DX: Z01.818 Encounter for other preprocedural examination (principal); Z20.828 Contact with and (suspected) exposure to other viral communicable diseases
CPT/HCPCS: 80048; 85027; 93005; U0003; 87635; 93010

== ENCOUNTER 2020-03-03 06:10 | Day surgery (SDC) | payer MEDICARE, BC ==
[2020-03-02 11:03] VITALS: BMI 20.1
[2020-03-03] MEDS ORDERED: EPINEPHrine 1 MG/ML AMP ONE (06:56)
[2020-03-03] MEDS ORDERED: Bupivacaine PF 0.5% 30 ML VIAL ONE (06:56)
[2020-03-03] MEDS ORDERED: Fentanyl 100 MCG/2 ML VIAL ONE (07:04)
[2020-03-03] MEDS ORDERED: PROPOFOL 200 MG/20 ML VIAL ONE (08:26)
--- NOTE | 2020-03-04 15:07 | OP ---
DATE OF PROCEDURE: 03/03/2020 PREOPERATIVE DIAGNOSIS: Sternal wire erosion through the skin. POSTOPERATIVE DIAGNOSIS: Sternal wire fracture from a fall with the fractured sternal wire protruding through the skin. PROCEDURE PERFORMED: Removal of two sternal wires. DESCRIPTION OF PROCEDURE: After good sedation had been obtained, 1% lidocaine was used to infiltrate over the sternum and an incision was made over the sternal wire that was protruding. It was evident that this wire had fractured and this was a broken edge. The wire was removed and the immediate adjacent wire was also cut and removed. The wound was then irrigated, curetted, and closed in layers. Job ID: [id number]
== END 2020-03-03 10:20 | disposition home or self-care (01) ==
LOC: SDC 06:10
PROVIDERS: ATTEND Thoracic Surgery (Cardiothoracic Vascular Surgery)
PROC: 0WP8XYZ Removal of Other Device from Chest Wall, External Approach (ICD-10-PCS; principal; 2020-03-03)
DX: T84.498A Other mechanical complication of other internal orthopedic devices, implants and grafts, initial encounter (principal); I25.10 Atherosclerotic heart disease of native coronary artery without angina pectoris; E11.9 Type 2 diabetes mellitus without complications; I10 Essential (primary) hypertension; E78.5 Hyperlipidemia, unspecified; Z79.82 Long term (current) use of aspirin; Z79.84 Long term (current) use of oral hypoglycemic drugs; Z88.2 Allergy status to sulfonamides; Z95.1 Presence of aortocoronary bypass graft
CPT/HCPCS: J0171; J0690; J2704; J3010; S0020

== ENCOUNTER 2024-02-26 10:43 | Inpatient (IN) | payer MEDICARE ==
[2024-02-26 11:36] LABS: #Basophils 0.03 10x3/uL (0.0-0.2); %Basophils 0.5 % (0.0-1.0); %Lymphocytes 20.7 % (21.0-51.0); %Monocytes 13.8 % (0.0-10.0); %Neutrophils 63.8 % (42.0-75.0); Hematocrit 35.7 % (36.0-47.0); Hemoglobin 11.7 g/dL (12.0-16.0); Mean Corpuscular HGB CONC 32.8 g/dL (32.0-36.0); Mean Corpuscular Hemoglobin 29.7 pg (27.0-31.0); Mean Corpuscular Volume 90.6 fL (78.0-98.0); Mean Platelet Volume 8.9 fL (7.4-10.4); Platelet Count 274 10x3/uL (130-400); RBC Distribution Width 13.9 % (11.5-14.5); Red Blood Cell (RBC) Count 3.94 mill/uL (4.20-5.40)
[2024-02-26 12:07] LABS: ALT (SGPT) 14 U/L (8-55); AST (SGOT) 36 U/L (5-34); Albumin 3.2 g/dL (3.4-4.8); Alkaline Phosphatase 83 U/L (40-110); Anion Gap 12 mmol/L (10-20); BUN (Urea Nitrogen) 19 mg/dL (9.8-20.1); Bilirubin, Total 0.7 mg/dL (0.2-1.2); CK (CPK) 1222 U/L (29-168); Calc. Creatinine Clearance 0 mL/min (70-130); Calcium 8.6 mg/dL (7.8-10.44); Carbon Dioxide 26 mmol/L (23-31); Chloride 106 mmol/L (98-107); Estimated GFR 79; Globulin 3.6 g/dL (2.4-3.5); Glucose 124 mg/dL (83-110); Potassium 3.6 mmol/L (3.5-5.1); Protein, Total 6.8 g/dL (5.8-8.1); Sodium 140 mmol/L (136-145)
[2024-02-26 14:23] LABS: Bilirubin Negative (Negative); Blood, Urine Negative (Negative); CAUTI Indications for Culture Alt mental st,lethar; Clarity Clear (Clear); Glucose, Urine (Dipstick) Normal (Negative); Ketone, Urine 20 mg/dL (Negative); Leukocyte 75 Leu/uL (Negative); Nitrite Negative (Negative); Protein, Urine (Dipstick) 30 mg/dL (Neg-Trace); RBC/HPF 0-3 HPF (0-3); Specific Gravity, Urine 1.025 (1.002-1.036); Squamous Epithelial 0-3 HPF (0-3); Urobilinogen Normal mg/dL (Less than 2); pH, Urine 5.5 (5.0-9.0)
[2024-02-26 14:25] LABS: Bacteria/HPF 2+ HPF (None Seen)
[2024-02-26 14:27] LABS: Urine Culture Reflex Yes Yes
[2024-02-26] MEDS ORDERED: cefTRIAXone (ROCEPHIN) 2 GM VIAL ONE (14:48)
[2024-02-26] MEDS ORDERED: Sodium Chloride 0.9% 100 ML ONE (14:49)
[2024-02-26] MEDS ORDERED: Acetaminophen 650 MG Suppository PR PRN (19:35)
[2024-02-26] MEDS ORDERED: Ondansetron ODT 4 MG TAB PO PRN (19:35)
[2024-02-26] MEDS ORDERED: traMADol HCl 50 MG TAB PO PRN (19:35)
[2024-02-26 22:28] VITALS: BMI 21.4
[2024-02-27] MEDS: Sodium Chloride 0.9% 1,000 ML IV SCH (01:56)
[2024-02-27] MEDS: Furosemide 20 MG (2 mL) VIAL SLOW IVP SCH (01:56)
[2024-02-27] MEDS: Famotidine 20 MG TAB PO SCH (01:59)
[2024-02-27 05:25] LABS: #Basophils 0.03 10x3/uL (0.0-0.2); %Basophils 0.6 % (0.0-1.0); %Eosinophils 3.2 % (0.0-10.0); %Lymphocytes 27.3 % (21.0-51.0); %Monocytes 14.4 % (0.0-10.0); %Neutrophils 54.5 % (42.0-75.0); Hematocrit 32.1 % (36.0-47.0); Hemoglobin 10.6 g/dL (12.0-16.0); Mean Corpuscular Hemoglobin 30.3 pg (27.0-31.0); Mean Corpuscular Volume 91.7 fL (78.0-98.0); Mean Platelet Volume 9.3 fL (7.4-10.4); Platelet Count 243 10x3/uL (130-400); RBC Distribution Width 14.3 % (11.5-14.5)
[2024-02-27 05:46] LABS: Anion Gap 10 mmol/L (10-20); BUN (Urea Nitrogen) 17 mg/dL (9.8-20.1); Calc. Creatinine Clearance 48 mL/min (70-130); Carbon Dioxide 27 mmol/L (23-31); Chloride 107 mmol/L (98-107); Estimated GFR 77; Glucose 164 mg/dL (83-110); Potassium 3.3 mmol/L (3.5-5.1); Sodium 141 mmol/L (136-145)
[2024-02-27] MEDS: Carbidopa/Levodopa 25-100 mg Tablet PO SCH (08:16)
[2024-02-27] MEDS: Aspirin 81 mg Enteric Coated Tablet PO SCH (08:16)
[2024-02-27] MEDS: Ezetimibe 10 MG TAB PO SCH (08:16)
[2024-02-27] MEDS: Enoxaparin 40 MG (0.4 mL) SYRINGE SC SCH (08:16)
[2024-02-27] MEDS: Potassium Chloride 20 MEQ TAB PO SCH (08:16)
[2024-02-27] MEDS ORDERED: cefTRIAXone\\ROCEPHIN 1 GM in Sodium Chloride 0.9% 100 ML IVPB SCH (15:00)
[2024-02-27] MEDS: AMPicillin 1 GM in Sodium Chloride 0.9% 100 ML IVPB SCH (18:01)
[2024-02-28 05:14] LABS: #Basophils 0.03 10x3/uL (0.0-0.2); %Basophils 0.6 % (0.0-1.0); %Eosinophils 4.4 % (0.0-10.0); %Lymphocytes 36.4 % (21.0-51.0); %Monocytes 16.5 % (0.0-10.0); %Neutrophils 41.9 % (42.0-75.0); Hemoglobin 10.6 g/dL (12.0-16.0); Mean Corpuscular HGB CONC 33.1 g/dL (32.0-36.0); Mean Corpuscular Hemoglobin 30.5 pg (27.0-31.0); Mean Corpuscular Volume 92.2 fL (78.0-98.0); Mean Platelet Volume 9.5 fL (7.4-10.4); Platelet Count 246 10x3/uL (130-400); RBC Distribution Width 13.9 % (11.5-14.5); Red Blood Cell (RBC) Count 3.47 mill/uL (4.20-5.40)
[2024-02-28 05:37] LABS: Anion Gap 7 mmol/L (10-20); BUN (Urea Nitrogen) 19 mg/dL (9.8-20.1); Calc. Creatinine Clearance 50 mL/min (70-130); Carbon Dioxide 29 mmol/L (23-31); Chloride 108 mmol/L (98-107); Estimated GFR 80; Glucose 122 mg/dL (83-110); Potassium 4.4 mmol/L (3.5-5.1); Sodium 140 mmol/L (136-145)
[2024-02-28] MEDS: Ergocalciferol 1.25 MG(50,000 UNITS) CAP PO SCH (12:06)
[2024-02-28] MEDS ORDERED: Polyethylene Glycol 3350 17 GM Packet PO PRN (12:31)
[2024-02-28] MEDS: Cyanocobalamin (Vitamin B-12) 1,000 MCG TAB PO SCH (20:08)
[2024-02-28] MEDS: Senokot S 8.6-50 MG TAB PO SCH (20:09)
[2024-02-28] MEDS: Folic Acid 1 MG TAB PO SCH (20:10)
[2024-02-28] MEDS: Thiamine 100 MG TAB PO SCH (20:10)
[2024-02-29] MEDS: Acetaminophen 325 MG TAB PO PRN (05:28)
[2024-02-29] MEDS: Saccharomyces boulardii 250 MG CAP PO SCH (20:05)
[2024-03-01 05:10] LABS: #Basophils Less than 0.03 10x3/uL (0.0-0.2); %Basophils 0.4 % (0.0-1.0); %Eosinophils 4.2 % (0.0-10.0); %Lymphocytes 34.1 % (21.0-51.0); %Monocytes 15.7 % (0.0-10.0); %Neutrophils 45.4 % (42.0-75.0); Hematocrit 32.9 % (36.0-47.0); Hemoglobin 10.5 g/dL (12.0-16.0); Mean Corpuscular HGB CONC 31.9 g/dL (32.0-36.0); Mean Corpuscular Hemoglobin 29.5 pg (27.0-31.0); Mean Corpuscular Volume 92.4 fL (78.0-98.0); Mean Platelet Volume 9.6 fL (7.4-10.4); Platelet Count 244 10x3/uL (130-400); RBC Distribution Width 13.9 % (11.5-14.5); Red Blood Cell (RBC) Count 3.56 mill/uL (4.20-5.40)
[2024-03-01 05:27] LABS: Anion Gap 8 mmol/L (10-20); BUN (Urea Nitrogen) 21 mg/dL (9.8-20.1); Calc. Creatinine Clearance 48 mL/min (70-130); Calcium 8.2 mg/dL (7.8-10.44); Carbon Dioxide 30 mmol/L (23-31); Chloride 106 mmol/L (98-107); Estimated GFR 77; Glucose 105 mg/dL (83-110); Magnesium 2.1 mg/dL (1.6-2.6); Phosphorus 3.7 mg/dL (2.3-4.7); Potassium 4.1 mmol/L (3.5-5.1); Sodium 140 mmol/L (136-145)
[2024-03-02] MEDS: LevoFLOXacin 750 MG TAB PO SCH (09:15)
[2024-03-02 13:52] VITALS: BP 120/60; TEMP 97.7
[2024-03-04] MEDS ORDERED: LevoFLOXacin 750 MG TAB PO SCH (06:00)
[2024-03-06] MEDS ORDERED: Ergocalciferol 1.25 MG(50,000 UNITS) CAP PO SCH (09:00)
== END 2024-03-02 14:20 | DRG 690 ==
LOC: ERS 10:43 → SDC/OP 20:40 → T4-A 21:00 → OBSVTOIN 02-28 08:12 → MERGE 02-28 08:12
PROVIDERS: ADMIT Internal Medicine; ATTEND Family Medicine
DX: N39.0 Urinary tract infection, site not specified (principal); G20.A1 Parkinson's disease without dyskinesia, without mention of fluctuations; R53.81 Other malaise; B95.2 Enterococcus as the cause of diseases classified elsewhere; E55.9 Vitamin D deficiency, unspecified; E11.22 Type 2 diabetes mellitus with diabetic chronic kidney disease; I12.9 Hypertensive chronic kidney disease with stage 1 through stage 4 chronic kidney disease, or unspecified chronic kidney disease; E87.6 Hypokalemia; N18.2 Chronic kidney disease, stage 2 (mild); Z88.2 Allergy status to sulfonamides; Z95.1 Presence of aortocoronary bypass graft; I25.10 Atherosclerotic heart disease of native coronary artery without angina pectoris; W19.XXXA Unspecified fall, initial encounter; Y93.89 Activity, other specified; Y92.89 Other specified places as the place of occurrence of the external cause
CPT/HCPCS: 36415; 36416; 51701; 71045; 72170; 80048; 80053; 81001; 82306; 82550; 83735; 83880; 84100; 85025; 87077; 87086; 87186; 93005; 93970; 96365; 96372; 96375; 96376; G0378; J0290; J0696; J1650; J1940; J7030

== ENCOUNTER 2024-10-18 13:24 | Inpatient (IN) | payer MEDICARE ==
[2024-10-18 14:59] LABS: #Basophils 0.04 10x3/uL (0.0-0.2); #Eosinophils 0.04 10x3/uL (0.0-0.7); #Monocytes 0.69 10x3/uL (0.11-0.59); #Neutrophils 5.07 10x3/uL (1.40-6.50); %Basophils 0.6 % (0.0-1.0); %Eosinophils 0.6 % (0.0-10.0); %Lymphocytes 18.0 % (21.0-51.0); %Monocytes 9.7 % (0.0-10.0); %Neutrophils 71.0 % (42.0-75.0); Hematocrit 36.7 % (36.0-47.0); Hemoglobin 11.6 g/dL (12.0-16.0); Mean Corpuscular Hemoglobin 29.2 pg (27.0-31.0); Mean Corpuscular Volume 92.4 fL (78.0-98.0); Platelet Count 343 10x3/uL (130-400); Red Blood Cell (RBC) Count 3.97 mill/uL (4.20-5.40); White Blood Cell (WBC) Count 7.13 10x3/uL (4.8-10.8)
[2024-10-18 15:19] LABS: ALT (SGPT) 21 U/L (Less than 34); AST (SGOT) 28 U/L (11-34); Albumin 3.5 g/dL (3.1-4.5); Alkaline Phosphatase 85 U/L (40-110); Anion Gap 16 mmol/L (10-20); BUN (Urea Nitrogen) 22 mg/dL (9.8-20.1); Bilirubin, Total 0.4 mg/dL (0.3-1.2); CK (CPK) 83 U/L (29-168); Calc. Creatinine Clearance 0 mL/min (70-130); Calcium 9.1 mg/dL (7.8-10.44); Carbon Dioxide 23 mmol/L (23-31); Chloride 107 mmol/L (98-107); Globulin 3.9 g/dL (2.4-3.5); Glucose 118 mg/dL (83-110); Magnesium 2.0 mg/dL (1.6-2.6); Potassium 4.5 mmol/L (3.5-5.1); Sodium 141 mmol/L (136-145)
[2024-10-18 15:21] LABS: Troponin I 0.028 ng/mL (< 0.028)
[2024-10-18 15:28] LABS: Bacteria/HPF 3+ HPF (None Seen); CAUTI Indications for Culture Acute Hematuria; Glucose, Urine (Dipstick) Normal (Negative); Leukocyte 500 Leu/uL (Negative); Protein, Urine (Dipstick) 30 mg/dL (Neg-Trace); RBC/HPF Greater than 50 HPF (0-3); Specific Gravity, Urine 1.023 (1.002-1.036); WBC/HPF Greater than 50 HPF (0-3)
[2024-10-18 15:31] LABS: Urine Culture Reflex Yes Yes
[2024-10-18] MEDS ORDERED: cefTRIAXone (ROCEPHIN) 1 GM VIAL ONE (16:15)
[2024-10-18] MEDS ORDERED: Guaifenesin DM 100-10/5 ML UDCUP PO PRN (18:07)
[2024-10-18] MEDS ORDERED: Ondansetron PF 4 MG/2 ML Vial IVP PRN (18:07)
[2024-10-18] MEDS ORDERED: Senokot S 8.6-50 MG TAB PO PRN (18:07)
[2024-10-18] MEDS: cefTRIAXone\\ROCEPHIN 1 GM in Sodium Chloride 0.9% 100 ML IVPB SCH (20:58)
[2024-10-19 05:28] VITALS: BMI 25.0
[2024-10-19 07:29] LABS: Anion Gap 14 mmol/L (10-20); BUN (Urea Nitrogen) 15 mg/dL (9.8-20.1); Calc. Creatinine Clearance 71 mL/min (70-130); Calcium 7.9 mg/dL (7.8-10.44); Carbon Dioxide 19 mmol/L (23-31); Chloride 110 mmol/L (98-107); Glucose 76 mg/dL (83-110); Potassium 3.6 mmol/L (3.5-5.1); Sodium 139 mmol/L (136-145)
[2024-10-19 07:34] LABS: #Basophils 0.05 10x3/uL (0.0-0.2); #Eosinophils 0.22 10x3/uL (0.0-0.7); #Monocytes 0.90 10x3/uL (0.11-0.59); #Neutrophils 3.38 10x3/uL (1.40-6.50); %Basophils 0.8 % (0.0-1.0); %Eosinophils 3.5 % (0.0-10.0); %Lymphocytes 28.1 % (21.0-51.0); %Monocytes 14.2 % (0.0-10.0); %Neutrophils 53.2 % (42.0-75.0); Hematocrit 31.0 % (36.0-47.0); Hemoglobin 9.9 g/dL (12.0-16.0); Mean Corpuscular Hemoglobin 29.8 pg (27.0-31.0); Mean Corpuscular Volume 93.4 fL (78.0-98.0); Platelet Count 274 10x3/uL (130-400); Red Blood Cell (RBC) Count 3.32 mill/uL (4.20-5.40); White Blood Cell (WBC) Count 6.34 10x3/uL (4.8-10.8)
[2024-10-19] MEDS: Aspirin 81 mg Enteric Coated Tablet PO SCH (08:24)
[2024-10-19] MEDS: Enoxaparin 40 MG (0.4 mL) SYRINGE SC SCH (08:24)
[2024-10-19] MEDS ORDERED: Electrolyte Replacement Protocol 1 EACH FS SCH (08:24)
[2024-10-19] MEDS: Ezetimibe 10 MG TAB PO SCH (08:24)
[2024-10-19] MEDS: Magnesium 2 GM/50 ML(in water) 2 GM in Premix 1 BAG IVPB SCH (09:41)
[2024-10-19 11:34] VITALS: BMI 25.0
[2024-10-19] MEDS: Vancomycin 1.5 GM / NS 500ML VIAL-2-BAG IVPB SCH (12:51)
[2024-10-19] MEDS ORDERED: cefTRIAXone\\ROCEPHIN 2 GM in Sodium Chloride 0.9% 100 ML IVPB SCH (18:00)
[2024-10-19] MEDS ORDERED: Vancomycin 1 GM in Premix 1 BAG IVPB SCH (21:00)
[2024-10-20 06:24] LABS: Vancomycin, Random 18.5 ug/mL (See Comment)
[2024-10-20 06:28] LABS: Anion Gap 10 mmol/L (10-20); BUN (Urea Nitrogen) 14 mg/dL (9.8-20.1); Calc. Creatinine Clearance 60 mL/min (70-130); Calcium 8.0 mg/dL (7.8-10.44); Carbon Dioxide 27 mmol/L (23-31); Chloride 108 mmol/L (98-107); Glucose 156 mg/dL (83-110); Magnesium 1.9 mg/dL (1.6-2.6); Potassium 4.0 mmol/L (3.5-5.1); Sodium 141 mmol/L (136-145)
[2024-10-20 06:33] LABS: #Basophils 0.04 10x3/uL (0.0-0.2); #Eosinophils 0.28 10x3/uL (0.0-0.7); #Monocytes 0.85 10x3/uL (0.11-0.59); #Neutrophils 2.56 10x3/uL (1.40-6.50); %Basophils 0.7 % (0.0-1.0); %Eosinophils 5.2 % (0.0-10.0); %Lymphocytes 30.7 % (21.0-51.0); %Monocytes 15.7 % (0.0-10.0); %Neutrophils 47.3 % (42.0-75.0); Hematocrit 30.4 % (36.0-47.0); Hemoglobin 9.9 g/dL (12.0-16.0); Mean Corpuscular Hemoglobin 30.4 pg (27.0-31.0); Mean Corpuscular Volume 93.3 fL (78.0-98.0); Platelet Count 253 10x3/uL (130-400); Red Blood Cell (RBC) Count 3.26 mill/uL (4.20-5.40); White Blood Cell (WBC) Count 5.41 10x3/uL (4.8-10.8)
[2024-10-20] MEDS: Acetaminophen 325 MG TAB PO PRN (09:05)
[2024-10-20] MEDS: Magnesium 2 GM/50 ML(in water) 2 GM in Premix 1 BAG IVPB SCH (10:41)
[2024-10-21 06:02] LABS: #Basophils 0.03 10x3/uL (0.0-0.2); #Eosinophils 0.23 10x3/uL (0.0-0.7); #Monocytes 0.90 10x3/uL (0.11-0.59); #Neutrophils 2.69 10x3/uL (1.40-6.50); %Basophils 0.5 % (0.0-1.0); %Eosinophils 4.1 % (0.0-10.0); %Lymphocytes 31.7 % (21.0-51.0); %Monocytes 15.9 % (0.0-10.0); %Neutrophils 47.4 % (42.0-75.0); Hematocrit 29.5 % (36.0-47.0); Hemoglobin 9.4 g/dL (12.0-16.0); Mean Corpuscular Hemoglobin 30.1 pg (27.0-31.0); Mean Corpuscular Volume 94.6 fL (78.0-98.0); Platelet Count 242 10x3/uL (130-400); Red Blood Cell (RBC) Count 3.12 mill/uL (4.20-5.40); White Blood Cell (WBC) Count 5.67 10x3/uL (4.8-10.8)
[2024-10-21 07:08] LABS: Anion Gap 8 mmol/L (10-20); BUN (Urea Nitrogen) 17 mg/dL (9.8-20.1); Calc. Creatinine Clearance 51 mL/min (70-130); Calcium 7.9 mg/dL (7.8-10.44); Carbon Dioxide 28 mmol/L (23-31); Chloride 107 mmol/L (98-107); Glucose 134 mg/dL (83-110); Potassium 4.4 mmol/L (3.5-5.1); Sodium 139 mmol/L (136-145)
[2024-10-21] MEDS: Folic Acid 1 MG TAB PO SCH (20:09)
[2024-10-21] MEDS: Multivit, Therapeutic 1 TAB PO SCH (20:09)
[2024-10-21] MEDS: Cholecalciferol 1,000 UNITS (25 MCG) TAB PO SCH (20:09)
[2024-10-21] MEDS: Cyanocobalamin (Vitamin B-12) 1,000 MCG TAB PO SCH (20:09)
[2024-10-23 07:44] VITALS: BP 149/67; TEMP 97.6
== END 2024-10-23 16:22 | DRG 689 ==
LOC: ERS 13:24 → OBSVTOIN 18:07 → T4-B 18:07
PROVIDERS: ADMIT Hospitalist; ATTEND Hospitalist
PROC: 3E0 Administration, Physiological Systems and Anatomical Regions, Introduction (ICD-10-PCS; principal; 2024-10-18)
DX: N39.0 Urinary tract infection, site not specified (principal); G93.41 Metabolic encephalopathy; G20.A1 Parkinson's disease without dyskinesia, without mention of fluctuations; R29.6 Repeated falls; N18.2 Chronic kidney disease, stage 2 (mild); I12.9 Hypertensive chronic kidney disease with stage 1 through stage 4 chronic kidney disease, or unspecified chronic kidney disease; E11.22 Type 2 diabetes mellitus with diabetic chronic kidney disease; E11.649 Type 2 diabetes mellitus with hypoglycemia without coma; E86.0 Dehydration; B96.89 Other specified bacterial agents as the cause of diseases classified elsewhere; E83.42 Hypomagnesemia; D63.1 Anemia in chronic kidney disease; W19.XXXA Unspecified fall, initial encounter; Z88.2 Allergy status to sulfonamides; Z79.899 Other long term (current) drug therapy
CPT/HCPCS: 36415; 36416; 51701; 70450; 71045; 80048; 80053; 80202; 81001; 82550; 83605; 83735; 83880; 84100; 84484; 85025; 87040; 87077; 87086; 87186; 93005; 96365; 97139; J0290; J0696; J1650; J3373; J3475; J7030; J7050